=== PATIENT | male | born 1940 | race Caucasian/White ===

== ENCOUNTER 2017-05-25 15:23 | Inpatient (IN) | payer MEDICARE, OTHER ==
[~2017-05-25] VITALS: Ht 170.2 cm; Wt 64.0 kg
[2017-05-25 16:09] LABS: Urine Bacteria NONE SEEN /hpf (None Seen); Urine Blood Negative /uL (Negative); Urine Hyaline Cast FEW /lpf (0 - 2); Urine Mucus FEW (None Seen); Urine Specific Gravity 1.016 (1.001-1.035); Urine Sperm PRESENT /hpf (None Seen); Urine WBC 2 /hpf (0 - 3)
[2017-05-25 16:24] LABS: Basophils # (auto) 0.1 uL; Basophils % (auto) 0.4 % (0.0-2.0); Eosinophils # (auto) 0.1 uL; Eosinophils % (auto) 0.7 % (0.0-7.0); Hematocrit 43.3 % (41.0-53.0); Hemoglobin 14.7 g/dL (13.5-17.5); Lymphocytes # (auto) 0.9 uL; Lymphocytes % (auto) 5.9 % (10.0-50.0); Mean Corpuscular Hemoglobin 33.5 pg (28.0-32.0); Mean Corpuscular Hgb Conc. 33.9 g/dL (32.0-36.0); Mean Corpuscular Volume 98.8 fL (80.0-100.0); Monocytes # (auto) 1.1 uL; Monocytes % (auto) 7.7 % (0.0-12.0); Neutrophils # (auto) 12.6 uL; Neutrophils % (auto) 85.3 % (37.0-80.0); Platelet Count (auto) 270 10^3/uL (140-450); Red Blood Cells 4.39 10^6/uL (4.5-5.90); White Blood Cell 14.8 10^3/uL (4.4-10.8)
[2017-05-25] MEDS ORDERED: cefTRIAXone 1GM/10ml IVPUSH 10 ML IV ONE (17:00)
[2017-05-25] MEDS ORDERED: AZITHROMYCIN 500MG/ 250ML 250 ML IV ONE (17:00)
[2017-05-25 18:23] LABS: BUN/Creatinine Ratio 28.2; Calcium 9.4 mg/dL (8.5-10.1); Potassium 4.9 mmol/L (3.5-5.1)
[2017-05-25 18:26] LABS: Bilirubin, Total 0.7 mg/dL (0.2-1.0)
[2017-05-25] MEDS ORDERED: ONDANSETRON HCL 4 MG/2 ML VIAL IV PRN (20:45)
[2017-05-25] MEDS ORDERED: ACETAMINOPHEN 325 MG TAB PO PRN (20:45)
[2017-05-25] MEDS ORDERED: MONTELUKAST SODIUM 10 MG TAB PO ONE (20:45)
[2017-05-25] MEDS ORDERED: MORPHINE SULF INJ 2 MG/ML SYRINGE 1ML IV PRN (20:45)
[2017-05-25] MEDS ORDERED: NITROGLYCERIN 0.4 MG SL TAB SL PRN (20:45)
[2017-05-25] MEDS: SODIUM CHLORIDE 0.9% 1,000 ML IV SCH ×2 (21:24→23:39)
[2017-05-25] MEDS: methylPREDNISolone SOD SUCC 125 MG/2 ML VL IV SCH (21:24)
[2017-05-25 21:43] VITALS: BP 98/54
[2017-05-25 22:00] VITALS: BP 124/61
[2017-05-25 23:00] VITALS: BP 124/61
[2017-05-26 05:27] VITALS: BP 168/98
[2017-05-26] MEDS: methylPREDNISolone SOD SUCC 125 MG/2 ML VL IV SCH ×3 (05:51→22:05)
[2017-05-26 05:58] LABS: Basophils # (auto) 0 uL; Basophils % (auto) 0.1 % (0.0-2.0); Eosinophils # (auto) 0 uL; Hematocrit 39.5 % (41.0-53.0); Hemoglobin 13.6 g/dL (13.5-17.5); Lymphocytes # (auto) 0.5 uL; Mean Corpuscular Hemoglobin 33.9 pg (28.0-32.0); Mean Corpuscular Hgb Conc. 34.4 g/dL (32.0-36.0); Mean Corpuscular Volume 98.3 fL (80.0-100.0); Monocytes # (auto) 0.1 uL; Monocytes % (auto) 0.7 % (0.0-12.0); Neutrophils # (auto) 7.5 uL; Neutrophils % (auto) 93.2 % (37.0-80.0); Platelet Count (auto) 219 10^3/uL (140-450); Red Blood Cells 4.02 10^6/uL (4.5-5.90); Red Cell Distribution Width 12.7 % (11.8-14.3)
[2017-05-26 06:17] LABS: BUN/Creatinine Ratio 32.6; Calcium 8.5 mg/dL (8.5-10.1); Magnesium 2.2 mg/dL (1.6-2.6); Phosphorus 3.9 mg/dL (2.5-4.90); Potassium 4.6 mmol/L (3.5-5.1)
[2017-05-26] MEDS: ALBUTEROL SULF 2.5 MG/0.5ML(0.5%) NEB SOLN NEB SCH ×4 (07:51→18:40)
[2017-05-26 09:00] VITALS: BP 144/77
[2017-05-26] MEDS: cefTRIAXone 1GM/10ml IVPUSH 10 ML IV SCH (10:00)
[2017-05-26] MEDS: AZITHROMYCIN 250 MG TAB PO SCH (10:00)
[2017-05-26] MEDS: ENOXAPARIN SOD 40 MG/0.4 ML SYRINGE SC SCH (10:00)
[2017-05-26] MEDS ORDERED: AMLO5TAB2 PO (12:02)
[2017-05-26] MEDS ORDERED: IRBE300T46 PO (12:02)
[2017-05-26 13:00] VITALS: BP 147/74
[2017-05-26] MEDS ORDERED: SODIUM CHLORIDE 0.9% 500 ML IV ONE (15:00)
[2017-05-26] MEDS ORDERED: SODIUM CHLORIDE 0.9% 1,000 ML IV SCH (15:00)
[2017-05-26 17:00] VITALS: BP 131/71
[2017-05-26 22:00] VITALS: BP 132/70
[2017-05-26] MEDS: METOPROLOL TARTRATE 25 MG TAB PO SCH (22:05)
[2017-05-26] MEDS: SODIUM CHLORIDE 0.9% 1,000 ML IV SCH (22:06)
[2017-05-27 05:00] VITALS: BP 118/71
[2017-05-27] MEDS: ALBUTEROL SULF 2.5 MG/0.5ML(0.5%) NEB SOLN NEB SCH ×4 (06:04→18:28)
[2017-05-27] MEDS: methylPREDNISolone SOD SUCC 125 MG/2 ML VL IV SCH ×3 (06:15→22:25)
[2017-05-27 09:05] VITALS: BP 130/78
[2017-05-27] MEDS: ENOXAPARIN SOD 40 MG/0.4 ML SYRINGE SC SCH (10:24)
[2017-05-27] MEDS: cefTRIAXone 1GM/10ml IVPUSH 10 ML IV SCH (10:24)
[2017-05-27] MEDS: METOPROLOL TARTRATE 25 MG TAB PO SCH ×2 (10:25→22:26)
[2017-05-27] MEDS: AZITHROMYCIN 250 MG TAB PO SCH (10:25)
[2017-05-27] MEDS: SODIUM CHLORIDE 0.9% 1,000 ML IV SCH ×2 (10:29→22:35)
[2017-05-27 13:00] VITALS: BP 124/67
[2017-05-27] MEDS ORDERED: LACTULOSE 20Gm/30ML SOLN PO ONE (13:00)
[2017-05-27] MEDS ORDERED: MAGNESIUM CITRATE SOLUTION 300 ML BTL PO ONE (13:00)
[2017-05-27] MEDS ORDERED: FLEET ENEMA(ADULT) 135 ML PR ONE (13:00)
[2017-05-27 17:00] VITALS: BP 145/77
[2017-05-27 22:13] VITALS: BP 140/68
[2017-05-28 05:00] VITALS: BP 114/66
[2017-05-28 05:39] LABS: Basophils # (auto) 0 uL; Basophils % (auto) 0.1 % (0.0-2.0); Eosinophils # (auto) 0 uL; Hemoglobin 12.3 g/dL (13.5-17.5); Lymphocytes # (auto) 0.4 uL; Mean Corpuscular Hemoglobin 33.8 pg (28.0-32.0); Mean Corpuscular Hgb Conc. 34.3 g/dL (32.0-36.0); Mean Corpuscular Volume 98.5 fL (80.0-100.0); Monocytes # (auto) 0.2 uL; Monocytes % (auto) 2.5 % (0.0-12.0); Neutrophils # (auto) 7.2 uL; Neutrophils % (auto) 92.4 % (37.0-80.0); Platelet Count (auto) 169 10^3/uL (140-450); Red Blood Cells 3.66 10^6/uL (4.5-5.90); Red Cell Distribution Width 12.9 % (11.8-14.3); White Blood Cell 7.8 10^3/uL (4.4-10.8)
[2017-05-28 06:09] LABS: BUN/Creatinine Ratio 36.5; Calcium 8.3 mg/dL (8.5-10.1); Potassium 4.4 mmol/L (3.5-5.1)
[2017-05-28] MEDS: methylPREDNISolone SOD SUCC 125 MG/2 ML VL IV SCH (06:22)
[2017-05-28] MEDS: ALBUTEROL SULF 2.5 MG/0.5ML(0.5%) NEB SOLN NEB SCH ×4 (06:48→19:18)
[2017-05-28 08:16] VITALS: BP 128/71
[2017-05-28] MEDS: ENOXAPARIN SOD 40 MG/0.4 ML SYRINGE SC SCH (09:27)
[2017-05-28] MEDS: cefTRIAXone 1GM/10ml IVPUSH 10 ML IV SCH (09:27)
[2017-05-28] MEDS: AZITHROMYCIN 250 MG TAB PO SCH (09:28)
[2017-05-28] MEDS: METOPROLOL TARTRATE 25 MG TAB PO SCH ×2 (09:29→21:49)
[2017-05-28] MEDS: SODIUM CHLORIDE 0.9% 1,000 ML IV SCH (11:55)
[2017-05-28 12:30] VITALS: BP 128/68
[2017-05-28 13:48] LABS: INR 0.99 (0.9-1.15); Prothrombin Time 10.8 sec (9.37-12.3)
[2017-05-28 16:08] VITALS: BP 117/74
[2017-05-28 20:00] VITALS: BP 131/87
[2017-05-28 22:00] VITALS: BP 131/87
[2017-05-29] VITALS (8 sets, daily range): BP systolic 131–146; BP diastolic 71–88
[2017-05-29 05:26] LABS: Basophils # (auto) 0 uL; Basophils % (auto) 0.1 % (0.0-2.0); Eosinophils # (auto) 0 uL; Hematocrit 36.2 % (41.0-53.0); Hemoglobin 12.6 g/dL (13.5-17.5); Lymphocytes % (auto) 16.2 % (10.0-50.0); Mean Corpuscular Hgb Conc. 34.7 g/dL (32.0-36.0); Mean Corpuscular Volume 97.8 fL (80.0-100.0); Monocytes # (auto) 0.6 uL; Monocytes % (auto) 10.1 % (0.0-12.0); Neutrophils # (auto) 4.3 uL; Neutrophils % (auto) 73.6 % (37.0-80.0); Nucleated Red Blood Cells % 0.1 %; Platelet Count (auto) 149 10^3/uL (140-450); Red Cell Distribution Width 12.9 % (11.8-14.3); White Blood Cell 5.9 10^3/uL (4.4-10.8)
[2017-05-29 05:49] LABS: BUN/Creatinine Ratio 36.4; Calcium 8.1 mg/dL (8.5-10.1); Potassium 4.1 mmol/L (3.5-5.1)
[2017-05-29] MEDS: ALBUTEROL SULF 2.5 MG/0.5ML(0.5%) NEB SOLN NEB SCH ×4 (06:13→19:11)
[2017-05-29] MEDS ORDERED: LIDOCAINE 2%HCL (LOCAL ANESTH.) INJ 20ML MDV ONE ×2 (06:54→11:29)
[2017-05-29] MEDS: cefTRIAXone 1GM/10ml IVPUSH 10 ML IV SCH (10:03)
[2017-05-29] MEDS: METOPROLOL TARTRATE 25 MG TAB PO SCH ×2 (10:04→22:52)
[2017-05-29] MEDS: predniSONE 20 MG TAB PO SCH (10:04)
[2017-05-29] MEDS: AZITHROMYCIN 250 MG TAB PO SCH (10:04)
[2017-05-29] MEDS ORDERED: MIDAZOLAM HCL 1MG/1ML-2 ML VIAL ONE (11:24)
[2017-05-29] MEDS ORDERED: fentaNYL CITRATE 100 MCG/2 ML VL ONE (11:24)
[2017-05-30 05:27] VITALS: BP 137/83
[2017-05-30] MEDS: ALBUTEROL SULF 2.5 MG/0.5ML(0.5%) NEB SOLN NEB SCH (06:00)
[2017-05-30 08:42] VITALS: BP 134/61
[2017-05-30] MEDS: cefTRIAXone 1GM/10ml IVPUSH 10 ML IV SCH (09:56)
[2017-05-30] MEDS: AZITHROMYCIN 250 MG TAB PO SCH (09:57)
[2017-05-30] MEDS: METOPROLOL TARTRATE 25 MG TAB PO SCH (09:57)
[2017-05-30] MEDS: predniSONE 20 MG TAB PO SCH (09:57)
[2017-05-30 11:43] VITALS: BP 131/77
[2017-05-30 12:03] VITALS: BP 98/74
== END 2017-05-30 12:43 | disposition home or self-care (01) | DRG 178 ==
LOC: ER 15:31 → WEST WING 15:32
PROVIDERS: ADMIT Nurse Practitioner Acute Care; ATTEND Internal Medicine
PROC: 0BBD3ZX Excision of Right Middle Lung Lobe, Percutaneous Approach, Diagnostic (ICD-10-PCS; principal; 2017-05-29)
DX: J69.0 Pneumonitis due to inhalation of food and vomit (principal); J44.0 Chronic obstructive pulmonary disease with (acute) lower respiratory infection; K76.89 Other specified diseases of liver; J98.11 Atelectasis; J44.1 Chronic obstructive pulmonary disease with (acute) exacerbation; F17.210 Nicotine dependence, cigarettes, uncomplicated; I10 Essential (primary) hypertension; R91.8 Other nonspecific abnormal finding of lung field; K59.00 Constipation, unspecified; I70.0 Atherosclerosis of aorta; R49.0 Dysphonia; Z82.5 Family history of asthma and other chronic lower respiratory diseases; Z85.01 Personal history of malignant neoplasm of esophagus; Z80.0 Family history of malignant neoplasm of digestive organs
CPT/HCPCS: 10022; 36415; 71045; 71046; 71250; 77012; 80048; 80053; 81001; 83735; 84100; 85025; 85379; 85610; 87040; 88341; 93005; 94640; 96365; 96366; 96375; J2250